=== PATIENT | male | born 1960 | race Caucasian/White ===

== ENCOUNTER 2019-06-30 08:17 | Emergency (ER) | payer OTHER ==
[~2019-06-30] VITALS: Ht 182.9 cm; Wt 100.7 kg
[~2019-06-30 08:17] MED LIST: ADULT LOW DOSE81 MG PO; ASPIR-LOW81 MG PO; DAILY VITAMIN1 EAC2 PO; FISH OIL 1,0001 EAC3 PO; FISH OIL 1,0001 EACH PO; HYZAAR 100-251 EACH PO; K-TAB ER20 MEQ PO; LANTUS100 UNITS/ SUB-Q; LOSARTAN-HCTZ1 EAC1 PO; METFORMIN HCL1000 MG PO; METOPROLOL SUC100 MG PO; MULTIVITAMINS1 EAC8 PO; NORCO 5-325 TA1 EACH PO; PERCOCET 7.5-31 EACH PO; PRANDIN2 MG PO; TRESIBA FL100 UNIT/1 SUB-Q; VITAMIN B-12500 MCG PO; VITAMIN B12-FO1 EACH PO; WELCHOL625 MG PO
--- OUTSIDE RECORDS SUMMARY | 2019-06-30 08:20 | XMS ---
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 Thomas VISIT COUNT (12 MO.) 1 SUSANNAH Robertson TOTAL 1 NOTE: Visits indicate total known visits. ED/UCC VISIT TRACKING (12 MO.) 06/30/2019 08:18 SUSANNAH [facility] TYPE: Emergency COMPLAINT: - CHEST PAIN INPATIENT VISIT TRACKING (12 MO.) 04/12/2019 05:45 SUSANNAH [facility] TYPE: Surgery COMPLAINT: - REPAIR EPIGASTRIC INCISIONAL HERNIA W/MESH DIAGNOSES: - Incisional hernia with obstruction, without gangrene [email or web address]
--- NOTE | 2019-06-30 12:00 | EKG ---
[facility] [address] [facility] [place], [place] [address] Signed Normal sinus rhythm Normal ECG When compared with ECG of 10-APR-2019 11:27, No significant change was found Confirmed by PELON ROYAL DO ([id number]) on 06/30/2019 12:00:01 PM Electronically Signed By: PELON ROYAL DO 06/30/19 1200 PATIENT NAME: SUSANNE GALINDO Electrocardiogram DATE OF : 56 PHYSICIAN: PELON ROYAL DO REPORT #: [id number] REPORT IS CONFIDENTIAL AND NOT TO BE RELEASED WITHOUT AUTHORIZATION
== END 2019-06-30 12:34 | disposition home or self-care (01) ==
LOC: ED 08:17
DX: R07.89 Other chest pain (principal); I10 Essential (primary) hypertension; E10.9 Type 1 diabetes mellitus without complications; Z88.2 Allergy status to sulfonamides; Z88.8 Allergy status to other drugs, medicaments and biological substances; Z79.899 Other long term (current) drug therapy
CPT/HCPCS: 80053; 83735; 84484; 85025; 93005; 93010; 99285-25

== ENCOUNTER 2019-07-06 23:43 | Emergency (ER) | payer OTHER ==
[~2019-07-06] VITALS: Ht 182.9 cm; Wt 100.7 kg
--- OUTSIDE RECORDS SUMMARY | 2019-07-06 23:46 | XMS ---
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 Thomas VISIT COUNT (12 MO.) 2 SUSANNAH [facility] TOTAL 2 NOTE: Visits indicate total known visits. 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
--- NOTE | 2019-07-07 08:04 | EKG ---
[facility] [address] [facility] [place], [place] [address] Signed Normal sinus rhythm Normal ECG When compared with ECG of 30-JUN-2019 08:21, No significant change was found Confirmed by KATHRINE WAYNE MD ([id number]) on 07/07/2019 8:04:03 AM Electronically Signed By: KATHRINE WAYNE MD 07/07/19803 PATIENT NAME: SUSANNE GALINDO Electrocardiogram DATE OF : 56 PHYSICIAN: KATHRINE WAYNE MD REPORT #: [id number] REPORT IS CONFIDENTIAL AND NOT TO BE RELEASED WITHOUT AUTHORIZATION
== END 2019-07-07 03:46 | disposition home or self-care (01) ==
LOC: ED 23:43
DX: R00.2 Palpitations (principal); R20.2 Paresthesia of skin; I10 Essential (primary) hypertension; E10.9 Type 1 diabetes mellitus without complications; Z88.2 Allergy status to sulfonamides; Z88.8 Allergy status to other drugs, medicaments and biological substances; Z79.899 Other long term (current) drug therapy
CPT/HCPCS: 80053; 83735; 84484; 85025; 93005; 93010; 99285-25

== ENCOUNTER 2021-06-07 06:30 | Day surgery (SDC) | payer OTHER ==
[~2021-06-07] VITALS: Ht 182.9 cm; Wt 95.5 kg
[2021-06-07] MEDS ORDERED: LOSARTAN POTAS100 MG PO (06:51)
[2021-06-07] MEDS ORDERED: CIPROFLOXACIN500 MG PO (06:53)
[2021-06-07] MEDS ORDERED: HYDROCHLOROTHIA25 MG PO (06:53)
[2021-06-07] MEDS ORDERED: ADULT LOW DOSE81 MG PO (06:54)
--- NOTE | 2021-06-07 08:27 | NUR ---
06/07/21 0827 Yodit eBll 0805 PT ARRIVED IN PACU SLEEPY WITH NO C/O'S. ABD SOFT AND PASSING FLATUS. 0815 AT BEDSIDE TALKING TO PT. ALL QUESTIONS ANSWERED.
--- NOTE | 2021-06-08 16:53 | PATH ---
[facility] [address] [facility] [place], [place] [address] Signed SPECIMEN(S): A COLON POLYP AT 25 CM SPECIMEN(S): B COLON POLYP AT 30 CM SPECIMEN SOURCE: A. COLON POLYP AT 25 CM B. COLON POLYP AT 30 CM CLINICAL HISTORY: Colonoscopy. Surveillance, tenesmus. Postop: Polyps x 2, diverticulosis. MICROSCOPIC DESCRIPTION: Histologic sections of all submitted blocks are examined by light microscopy. These findings, together with the gross examination, support the pathologic diagnosis. FINAL PATHOLOGIC DIAGNOSIS: A. Colon, polyp at 25 cm, polypectomy: - Tubular adenoma. - Negative for high-grade dysplasia or malignancy. B. Colon, polyp at 30 cm, polypectomy: - Fragments of tubular adenoma. - Negative for high-grade dysplasia or malignancy. NAL:[facility]:C2NR GROSS DESCRIPTION: Two specimens are received in two containers, labeled "WH." A. The specimen, labeled "WH, colon polyp at 25 cm," is received in formalin and consists of one lovelace soft tissue fragment that measures 0.2 cm in greatest dimension. The specimen is entirely submitted in cassette (A1). B. The specimen, labeled "WH, colon polyp at 30 cm," is received in formalin and consists of three lovelace soft tissue fragments that measure 0.1-0.2 cm in greatest dimension. The specimen is entirely submitted in cassette (B1). JS (under the direct supervision of a pathologist) The Gross Description was prepared using a voice recognition system. The report was reviewed for accuracy; however, sound-alike word errors, addition and/or deletions may occur. If there is any question about this report, please contact Client Services. PERFORMING LABORATORY: The technical component was performed by [employer], Carlos Eduardo Thompson, PATIENT NAME: SUSANNE GALINDO PATHOLOGY DATE OF : 56 REPORT #: [id number] PHYSICIAN: ADELAIDA PATHOLOGY PCP: MIRI WHEELER MD REPORT IS CONFIDENTIAL AND NOT TO BE RELEASED WITHOUT AUTHORIZATION [facility] [address] [place], [place] [address] [place] [address] ([employer] Recruiter: Isela Estrada MD; CLIA# [id number]). Professional interpretation was performed by [facility], [address] [address] (CLIA# [id number]). Diagnostician: Mora Henderson MD Pathologist Electronically Signed 06/08/2021 Copies: ~ PATIENT NAME: SUSANNE GALINDO PATHOLOGY DATE OF : 56 REPORT #: [id number] PHYSICIAN: ADELAIDA PATHOLOGY PCP: MIRI WHEELER MD REPORT IS CONFIDENTIAL AND NOT TO BE RELEASED WITHOUT AUTHORIZATION
--- NOTE | 2021-06-09 12:22 | OR ---
[facility] [address] [place], [place] [address] Signed DATE OF OPERATION: 06/07/2021 SURGEON: Joelle Cisneros MD PREOPERATIVE DIAGNOSIS: complaints of tenesmus without rectal bleeding. POSTOPERATIVE DIAGNOSES: 1. Sigmoid diverticulosis. 2. Two small polyps 25 and 30 cm. 3. Ileal diverticulum (small). PROCEDURES: 1. Total colonoscopy to cecum with intubation of ileum. 2. Cold snare polypectomy x1 and cold morcellation polypectomy x1. ANESTHESIA: Intravenous sedation, fentanyl 100 mcg and Versed 4 mg. INDICATION: This 60-year-old white man is a patient of Dr. Miri Wheeler formally Dr. Chopra. He has a history of colonoscopy performed in [place] [address] Malin, which was said to be normal. He has no family history of colon cancer. He has no typical symptoms though occasionally has episodes of what sounds like tenesmus. He has no rectal bleeding. No diarrhea. No prior history of inflammatory bowel disease. He is admitted at this time to undergo colonoscopy. He understands the risks of bleeding, infection, or perforation. FINDINGS: The prep was excellent. Complete colonoscopy was undertaken of the cecum and intubation of the ileum was accomplished as well. Notably, he had a small diverticula of the ileum. This was unifocal so far as could be told. There were two small polyps at 30 and 25 cm one excised with cold morcellation technique and other cold snare technique. Diverticula were seen of the left colon and sigmoid as well. There were no other findings of concern. There was no evidence of proctitis clinically. DESCRIPTION OF PROCEDURE: The patient was brought to the endoscopy suite and placed in lateral decubitus position, Electronically Signed By: JOELLE CISNEROS MD 06/09/21 1222 PATIENT NAME: SUSANNE GALINDO OPERATIVE REPORT DATE OF : 56 REPORT #: [id number] PHYSICIAN: JOELLE CISNEROS MD PCP: MIRI WHEELER MD REPORT IS CONFIDENTIAL AND NOT TO BE RELEASED WITHOUT AUTHORIZATION [facility] [address] [place], [place] [address] Signed given intravenous sedation to the point of slurred speech and nystagmus. Digital rectal examination was normal. An Olympus video colonoscope was passed in the rectum and manipulated throughout the colon ultimately intubating the cecum itself. The ileocecal valve and appendiceal orifice were normal without too much trouble. The ileum was intubated and immediately noted was a small diverticulum and appeared to be the only diverticulum. The scope was withdrawn affirming the position and reintroduced confirming that the diverticulum was in the ileum in fact. The scope was withdrawn and careful withdrawal of scope throughout the colon showed no sign of abnormality until the left colon or diverticula were noted. At approximately 30 cm, there was a small polyp and another at 25 cm, each was excised along with cold snare technique, the other with cold morcellation technique. Further withdrawal of scope showed no other abnormality. Retroflexed view was normal. There was no sign of proctitis. The scope was removed. The patient was taken to the recovery room in good condition. CONCLUDING DIAGNOSES: 1. Diverticulosis. 2. Polyps x2. PLAN: Recommend a repeat colonoscopy in 5 years sooner if clinically indicated. We would recommend a high-fiber diet. If symptoms persist, I am happy to see him again. Joelle Cisneros MD JM/MODL /[id number] cc: MD Dutch Crews MD Copies: MIRI WHEELER DMD Electronically Signed By: JOELLE CISNEROS MD 06/09/21 1222 PATIENT NAME: SUSANNE GALINDO OPERATIVE REPORT DATE OF : 56 REPORT #: [id number] PHYSICIAN: JOELLE CISNEROS MD PCP: MIRI WHEELER MD REPORT IS CONFIDENTIAL AND NOT TO BE RELEASED WITHOUT AUTHORIZATION [facility] [address] [place], [place] [address] Signed DUTCH CHOPRA MD ~ Electronically Signed By: JOELLE CISNEROS MD 06/09/21 1222 PATIENT NAME: SUSANNE GALINDO OPERATIVE REPORT DATE OF : 56 REPORT #: [id number] PHYSICIAN: JOELLE CISNEROS MD PCP: MIRI WHEELER MD REPORT IS CONFIDENTIAL AND NOT TO BE RELEASED WITHOUT AUTHORIZATION
== END 2021-06-07 08:43 | disposition home or self-care (01) ==
LOC: OPS 06:30 → DS 06:30 → OPS 06:45 → DS 14:00
PROVIDERS: ATTEND Surgery
PROC: 0D7B8ZZ Dilation of Ileum, Via Natural or Artificial Opening Endoscopic (ICD-10-PCS; 2021-06-07)
PROC: 0DBE8ZX Excision of Large Intestine, Via Natural or Artificial Opening Endoscopic, Diagnostic (ICD-10-PCS; principal; 2021-06-07 06:45)
DX: K57.30 Diverticulosis of large intestine without perforation or abscess without bleeding (principal); K57.10 Diverticulosis of small intestine without perforation or abscess without bleeding; D12.6 Benign neoplasm of colon, unspecified; Z98.890 Other specified postprocedural states; Z90.49 Acquired absence of other specified parts of digestive tract
CPT/HCPCS: 99153; G0500; J2250; J3010; J7121